=== PATIENT | female | born 1960 | race Caucasian/White ===

== ENCOUNTER → 2016-12-26 | Outpatient (CLI) | payer OTHER ==
[~2016-12-26] MED LIST: ALLO100T PO; ASPI325T32 PO; ATOR10TA65 PO; BENA20TA48 PO; CHOL100062 PO; HYD25 PO; OXYC-481 PO; TRAM50TA2 PO
--- NOTE | 2016-12-27 11:42 | RADRPT ---
PROCEDURE: XR pelvis/left hip. CLINICAL INDICATION: Hip pain TECHNIQUE: AP pelvis/AP and lateral left hip views performed. COMPARISON: 09/03/2016 FINDINGS: There is a left total hip replacement. There is no evidence of loosening of the prosthesis. There is moderate right hip osteoarthrosis. This is associated with joint space narrowing, subchondr al sclerosis and osteophytosis. There are degenerative changes of the lower lumbar spine. There is normal osseous mineralization. No fractures or osseous lesions are identified. The soft tissues ar e unremarkable. IMPRESSION: Left total hip replacement. Moderate right hip osteoarthrosis. Degenerative changes of the lower lumbar spine RPTAT: [facility] .Tony Upton MD, Date Time Electronically viewed and signed by .Tony Upton MD, on 12/27/2016 11:42 .B/
== END | disposition home or self-care (01) ==
LOC: HKI 14:15
PROVIDERS: ATTEND Orthopaedic Surgery
DX: Z47.1 Aftercare following joint replacement surgery (principal); Z96.642 Presence of left artificial hip joint
CPT/HCPCS: 73502; Z7500; G0463